=== PATIENT | female | born 1970 | race Caucasian/White ===

== ENCOUNTER → 2018-11-20 | Outpatient (CLI) | payer OTHER ==
[~2018-11-20] MED LIST: LEVO88TA42 PO; SPIR50TA31 PO
--- NOTE | 2018-11-23 11:24 | RADIOLOGY IMAGING REPORT ---
FACILITY: [facility] PATIENT NAME: ALEXIS PADILLA : [id number] MR: [id number] V: [id number] EXAM DATE: [id number] ORDERING PHYSICIAN: VALERIO NUNEZ TECHNOLOGIST: Luz Agee PROCEDURE:BILATERAL DIGITAL SCREENING MAMMOGRAM WITH CAD ASSISTED INTERPRETATION & 3D TOMOSYNTHESIS COMPARISON:Prior mammograms 06/09/15, 10/23/12. INDICATIONS:screening FINDINGS: The breasts are heterogeneously dense which can obscure small masses. The parenchymal pattern has remained stable allowing for difference in mammographic technique & patient positioning. DIAGNOSTIC CATEGORY 1--NEGATIVE. RECOMMENDATIONS: ROUTINE MAMMOGRAM AND CLINICAL EVALUATION. IMPRESSION: BIRADS 1: Negative. No significant abnormality is seen. Dictated by: Gloria Chambers M.D. on 11/20/2018 at 15:55 Transcribed by: EZ on 11/23/2018 at 8:29 Approved by: Gloria Chambers M.D. on 11/23/2018 at 11:23 [facility]
== END ==
LOC: MAMO 01:38
PROVIDERS: ATTEND Nurse Practitioner
DX: Z12.31 Encounter for screening mammogram for malignant neoplasm of breast (principal)
CPT/HCPCS: 77063; 77067

== ENCOUNTER → 2019-01-13 | Outpatient (CLI) | payer OTHER ==
[~2019-01-13] MED LIST changes: +AMOX-559 PO; +BECL10.62 INH; +OMEP-126 PO
--- NOTE | 2019-01-13 13:27 | RADIOLOGY IMAGING REPORT ---
FACILITY: [facility] [place] PATIENT NAME: Keke Palacios : 1970 MR: [id number] V: [id number] EXAM DATE: ORDERING PHYSICIAN: LORI BEVERLY TECHNOLOGIST: Location: [facility] [place] Patient: Keke Palacios : 1970 Visit/Account:[id number] Date of Sevice: 01/13/2019 EXAMINATION: PA and Lateral Chest 01/13/2019 12:37 PM HISTORY: chronic cough COMPARISON: None FINDINGS: Cardiomediastinal contours: Normal Lungs and pleura: Normal Bones/soft tissues: Right breast contours not as well-defined in the frontal as well as the left alth ough the patient had a bilateral mammogram in November and I do not know of any intervening breast surge ry/mastectomy and this is probably simply technical. IMPRESSION: No acute cardiopulmonary abnormality. Report Dictated By: Noam Sun MD at 01/13/2019 1:19 PM Report E-Signed By: Noam Sun MD at 01/13/2019 1:22 PM WSN:[id number]
== END ==
LOC: RAD 12:34
PROVIDERS: ATTEND Physician Assistant
DX: R05 Cough (principal)
CPT/HCPCS: 71046

== ENCOUNTER → 2019-01-13 | Outpatient (CLI) | payer OTHER | LOC: LAB 11:25 | PROVIDERS: ATTEND Physician Assistant | DX: Z91.018 Allergy to other foods (principal) | CPT/HCPCS: 36415; 86003 ==

== ENCOUNTER → 2019-03-08 | Outpatient (CLI) | payer OTHER ==
--- NOTE | 2019-03-08 12:27 | RADIOLOGY IMAGING REPORT ---
[place] [facility] [place] NAME: Keke Palacios : 1970 MR: [id number] V: [id number] EXAM DATE: ORDERING PHYSICIAN: LORI BEVERLY TECHNOLOGIST: Location: [facility] Patient: Keke Palacios : 1970 Visit/Account:[id number] Date of Sevice: 03/08/2019 Study: CT scan of the paranasal sinuses Indication: Chronic sinusitis Comparison study:None Technique: Multiple axial images were obtained through the paranasal sinuses. Coronal and sagittal 2- dimensional reconstructions were made from the original data set. One of the following dose optimization techniques was utilized in the performance of this exam: Autom ated exposure control; adjustment of the mA and/or kV according to the patient's size; or use of an i terative reconstruction technique. Specific details can be referenced in the facility's radiology C T exam operational policy. Findings: The patient is status post bilateral open reduction internal fixation of the anterior maxil girish sinus brown bilaterally. Maxillary sinuses:Unremarkable Ethmoid air cells:Unremarkable Sphenoid sinus:Unremarkable Frontal sinus:Unremarkable Ostiomeatal units:Patent bilaterally Nasal septum:Midline IMPRESSION:CT scan of the paranasal sinuses demonstrating no evidence of radiographically significant abnormality. Report Dictated By: Reginaldo Sainz at 03/08/2019 12:15 PM Report E-Signed By: Reginaldo Sainz at 03/08/2019 12:18 PM WSN:[id number]
== END ==
LOC: CT 06:54
PROVIDERS: ATTEND Physician Assistant
DX: J32.9 Chronic sinusitis, unspecified (principal)
CPT/HCPCS: 70486